=== PATIENT | male | born 1985 | race Two or more races ===

== ENCOUNTER 2023-09-13 10:40 | Emergency (ER) | payer MEDICAID ==
[~2023-09-13] VITALS: Ht 165.1 cm; Wt 65.5 kg
[2023-09-13 10:54] VITALS: TEMP 98.3
[2023-09-13 13:33] VITALS: BP 124/75; PULSE 72; RESP 16
[2023-09-13] MEDS ORDERED: SULF-261 PO (14:55)
[2023-09-13] MEDS ORDERED: KETO15CR2 TP (14:55)
== END 2023-09-13 17:24 | disposition home or self-care (01) ==
LOC: EMS 10:40
DX: L03.116 Cellulitis of left lower limb (principal); B35.3 Tinea pedis; F17.210 Nicotine dependence, cigarettes, uncomplicated; F15.10 Other stimulant abuse, uncomplicated
CPT/HCPCS: 99283; Z7502